=== PATIENT | male | born 1990 ===

== ENCOUNTER 2019-06-14 15:38 | Emergency (ER) | payer SELFPAY ==
--- NOTE | 2019-06-14 15:45 | Event Note ---
ED Screening Note ED Screening Note: hematuria that began this morning +dysuria no penile discharge no testicular edema or pain no abd pain no n/v/d no fever no PMHx no allergies to meds This initial assessment/diagnostic orders/clinical plan/treatment(s) is/are subject to change based on patients health status, clinical progression and re- assessment by fellow clinical providers in the ED. Further treatment and workup at subsequent clinical providers discretion. Patient/guardian urged not to elope from the ED as their condition may be serious if not clinically assessed and managed. Initial orders include: UA, labs
[2019-06-14 16:14] LABS: Bacteria,Urine 1+ /HPF (Negative); Bilirubin,Urine NEG (Negative); Blood,Urine LG (Negative); Color,Urine Yellow (Yellow); Mucus,Urine FEW /HPF; Urobilinogen,Urine < 2.0 mg/dL (<2.0)
[2019-06-14 16:29] LABS: Basophils # (Auto) 0.1 K/mm3 (0.0-0.1); Eosinophils # (Auto) 0.2 K/mm3 (0.0-0.4); Eosinophils % (Auto) 1.9 % (0.0-4.3); Hematocrit 45.8 % (35.5-45.6); Hemoglobin 15.9 gm/dl (11.8-15.2); Lymphocytes # (Auto) 2.5 K/mm3 (1.2-5.4); Lymphocytes % (Auto) 26.7 % (13.4-35.0); Mean Corpuscular HGB Conc 35 % (32-34); Mean Corpuscular Volume 87 fl (84-94); Monocytes # (Auto) 0.7 K/mm3 (0.0-0.8); Monocytes % (Auto) 7.1 % (0.0-7.3); Platelet Count 352 K/mm3 (140-440); Red Blood Count 5.25 M/mm3 (3.65-5.03); Red Cell Distribution Width 13.1 % (13.2-15.2)
[2019-06-14 16:41] LABS: BUN/Creatinine Ratio 14; Blood Urea Nitrogen 11 mg/dL (9-20); Calcium 9.1 mg/dL (8.4-10.2); Hemolysis Index 8
[2019-06-14] MEDS ORDERED: LIDOCAINE-MPF (1%) 10 MG/1 ML VIAL 5 ML INFILTRATI ONE (16:59)
[2019-06-14] MEDS ORDERED: AZITHROMYCIN 250 MG TAB PO ONE (16:59)
--- NOTE | 2019-06-14 17:04 | Emergency Department Report ---
ED Male HPI - General Chief complaint: Urogenital-Male Stated complaint: BLEEDING/PAIN WHILE URINATING Time Seen by Provider: 06/14/19 15:44 Source: patient Mode of arrival: Ambulatory Limitations: No Limitations - History of Present Illness Initial comments: patient presents to ER with gross hematuria that started this morning, and dysuria. Symptoms have been improving throughout the day. no fever, or flank pain. no n/v, no diarrhea, no penile discharge. MD Complaint: dysuria - Related Data Allergies Allergy/AdvReac Type Severity Reaction Status Date / Time No Known Allergies Allergy Unverified 10/16/15 15:02 ED Review of Systems ROS: Stated complaint: BLEEDING/PAIN WHILE URINATING Other details as noted in HPI Comment: All other systems reviewed and negative ENT: denies: ear pain, throat pain Respiratory: denies: cough, orthopnea Cardiovascular: denies: chest pain Gastrointestinal: denies: nausea Genitourinary: dysuria, hematuria ED Past Medical Hx - Past Medical History Previous Medical History?: No - Surgical History Past Surgical History?: No - Social History Smoking Status: Current Every Day Smoker Substance Use Type: Alcohol ED Physical Exam - General Limitations: No Limitations General appearance: alert, in no apparent distress - Head Head exam: Present: atraumatic, normocephalic - Eye Eye exam: Present: normal appearance, PERRL, EOMI Pupils: Present: normal accommodation - ENT ENT exam: Present: normal exam, normal orophraynx - Neck Neck exam: Present: normal inspection - Respiratory Respiratory exam: Present: normal lung sounds bilaterally - Cardiovascular Cardiovascular Exam: Present: regular rate, normal rhythm - GI/Abdominal GI/Abdominal exam: Present: soft - exam: Present: normal inspection - Extremities Exam Extremities exam: Present: normal inspection - Back Exam Back exam: Present: normal inspection - Neurological Exam Neurological exam: Present: alert, oriented X3, CN II-XII intact - Psychiatric Psychiatric exam: Present: normal affect ED Course Vital Signs 06/14/19 15:40 Temperature 98.3 F Pulse Rate 122 H Respiratory 22 Rate Blood Pressure 149/96 O2 Sat by Pulse 96 Oximetry ED Medical Decision Making - Lab Data Result diagrams: 06/14/19 16:10 06/14/19 16:10 - Differential Diagnosis ddx: recently passed stones, urethritis, cystitis Critical care attestation.: If time is entered above; I have spent that time in minutes in the direct care of this critically ill patient, excluding procedure time. ED Disposition Clinical Impression: Urethritis Hematuria Qualifiers: Hematuria type: gross Qualified Code(s): R31.0 - Gross hematuria Disposition: TO HOME OR SELFCARE Is pt being admited?: No Does the pt Need Aspirin: No Condition: Stable Referrals: INGE GARCIA MD [Staff Physician] - 3-5 Days Forms: STI Treatment and Prevention
[2019-06-14 18:14] VITALS: BP 140/91
== END 2019-06-14 18:13 | disposition home or self-care (01) ==
LOC: ED 15:38
DX: N34.2 Other urethritis (principal); F17.200 Nicotine dependence, unspecified, uncomplicated
CPT/HCPCS: 36415; 80048; 81001; 85025; 87591; 96372; 99283; J0696